=== PATIENT | female | born 1990 | race Caucasian/White ===

== ENCOUNTER 2024-02-21 13:56 | Outpatient (REF) | payer MEDICAID, SELFPAY ==
[2024-02-21 16:48] LABS: Abs Immature Grans 0.01 10^3/uL (0.0-0.06); Absolute Basophil Count 0.02 10^3/uL (0.0-0.2); Absolute Eosinophil Count 0.16 10^3/uL (0.0-0.7); Absolute Lymphocyte Count 2.73 10^3/uL (1.2-3.4); Absolute Monocyte Count 0.26 10^3/uL (0.1-0.8); Absolute Neutrophil Count 1.96 10^3/uL (1.2-6.7); Basophils % 0.4 %; Eosinophils % 3.1 %; HCT 40.1 % (36.0-46.0); HGB 13.7 g/dL (11.2-15.7); Immature Grans % 0.2 %; Lymphocytes % 53.1 %; MCH 30.9 pg (27.0-33.0); MCHC 34.2 % (32.0-36.0); MCV 90 fL (80-95); MPV 12.5 fL (8.0-11.0); Monocytes % 5.1 %; Neutrophils % 38.1 %; Platelet Count 183 10^3/uL (130-400); RBC 4.44 10^6/uL (3.93-5.22); RDW 12.6 % (11.7-14.6); RDW-SD 41.6 fL; WBC 5.14 10^3/uL (4.4-10.8)
[2024-02-21 17:20] LABS: Hemoglobin A1C 4.9 % (<5.7)
[2024-02-21 17:31] LABS: ALT 20 U/L (14-59); Albumin 4.2 g/dL (3.4-5.0); Alkaline Phosphatase 43 U/L (46-116); Anion Gap 9.3 mmol/L (3-11); BUN 6 mg/dL (7-18); Bilirubin, Total 0.38 mg/dL (0.2-1.0); CO2 28.7 mmol/L (21.0-32.0); CREATININE 0.9 mg/dL (0.55-1.02); Calcium 9.4 mg/dL (8.5-10.1); Calculated LDL 81 mg/dL (<100); Chloride 106 mmol/L (98-107); Cholesterol 161 mg/dL (<200); Estimated GFR 86.57 (mL/min/1.73m2); Glucose 89 mg/dL (74-106); HDL Cholesterol 71 mg/dL (40-60); Sodium 144 mmol/L (136-145); TSH (W/Ref FT4) 0.92 uIU/mL (0.36-3.74); Triglyceride 49 mg/dL (<150); Vitamin B12 914 pg/mL (193-986); Vitamin D 25 Total 30.8 ng/mL (30-100)
[2024-02-21 17:39] LABS: AST 15 U/L (15-37)
== END 2024-02-21 13:57 | disposition home or self-care (01) ==
LOC: LBN 13:56
PROVIDERS: PCP Nurse Practitioner Family; Visit Provider Nurse Practitioner Family
DX: E55.9 Vitamin D deficiency, unspecified (principal); D51.3 Other dietary vitamin B12 deficiency anemia; I10 Essential (primary) hypertension; E78.5 Hyperlipidemia, unspecified
CPT/HCPCS: 80053; 80061; 82306; 82607; 83036; 84443; 85025

== ENCOUNTER 2024-03-04 14:43 | Emergency (ER) | payer MEDICAID, SELFPAY ==
[2024-03-04] VITALS (40 sets, daily range): BP systolic 113–143; BP diastolic 67–89; PULSE 40–75; RESP 12–32; TEMP 36.1–36.3; O2SAT 84–100
--- NOTE | 2024-03-04 14:45 | RT.EKG_ITS ---
APPROVED REPORT Exam: Resting ECG Reason for Exam: dizziness Patient Location: E HR:47 bpm ECG Measurements Heart Rate 47 AXIS SC 153 P -18 QRSd 82 QRS 59 QT 504 T 55 QTc 447 Conclusion Sinus bradycardia...rate< 60 Supraventricular bigeminy...bigeminy string>4 w/ SV complexes
[2024-03-04 15:20] LABS: Abs Immature Grans 0.04 10^3/uL (0.0-0.06); Absolute Basophil Count 0.03 10^3/uL (0.0-0.2); Absolute Eosinophil Count 0.01 10^3/uL (0.0-0.7); Absolute Lymphocyte Count 0.87 10^3/uL (1.2-3.4); Absolute Monocyte Count 0.25 10^3/uL (0.1-0.8); Basophils % 0.4 %; Eosinophils % 0.1 %; HGB 13.4 g/dL (11.2-15.7); Immature Grans % 0.5 %; MCH 30.9 pg (27.0-33.0); MCHC 34.4 % (32.0-36.0); MCV 90 fL (80-95); MPV 11.4 fL (8.0-11.0); Monocytes % 3.2 %; Neutrophils % 84.8 %; Platelet Count 164 10^3/uL (130-400); RBC 4.34 10^6/uL (3.93-5.22); RDW 12.4 % (11.7-14.6); RDW-SD 40.9 fL
[2024-03-04] MEDS: Lactated Ringers 1,000 ML 1000 ML IV (15:30)
[2024-03-04 15:36] LABS: Source Nasal/Nares
[2024-03-04 15:42] LABS: ALT 23 U/L (14-59); AST 18 U/L (15-37); Albumin 3.8 g/dL (3.4-5.0); Alkaline Phosphatase 40 U/L (46-116); Anion Gap 12.7 mmol/L (3-11); BUN 10 mg/dL (7-18); Bilirubin, Total 0.91 mg/dL (0.2-1.0); CO2 19.3 mmol/L (21.0-32.0); CREATININE 0.9 mg/dL (0.55-1.02); Chloride 108 mmol/L (98-107); Estimated GFR 86.57 (mL/min/1.73m2); Glucose 150 mg/dL (74-106); Magnesium 1.6 mg/dL (1.8-2.4); Potassium 3.3 mmol/L (3.5-5.1); Sodium 140 mmol/L (136-145); Troponin I < 50 ng/L (< or =60)
--- NOTE | 2024-03-04 15:46 | ED.GENADUL_ITS ---
Discharge Plan Discharge Details Chief Complaint: Dizzy/Sync Primary Care Provider: Noris Enciso ED Provider: Job Smith Home Meds and New Rx's Prescriptions: No Action citalopram [Celexa] 40 mg tablet 40 mg PO DAILY bupropion HCl [Wellbutrin XL] 300 mg tablet extended release 24 hr 300 mg PO QAM lisdexamfetamine [Vyvanse] 30 mg capsule 30 mg PO QAM olanzapine 5 mg tablet 5 mg PO TID PRN lamotrigine 25 mg tablet 75 mg PO DAILY hydroxyzine HCl 25 mg tablet 25 mg PO TID PRN lorazepam 2 MG tablet 2 mg PO PRN PRN Xarelto 20 MG tablet 20 mg PO DAILY HPI General Mode of arrival: EMS . Date/Time Provider Initiated Documentation: 03/04/24 14:45 . Limitations to Documentation: no limitations . Information obtained by: patient . HPI Narrative: 33-year-old female with history of bipolar disorder 2, ADHD, PTSD, fibromyalgia, here with chief complaint of vomiting. Patient notes cough over the past 3 to 4 days. She developed nausea last night that persisted with vomiting today. She has associated dizziness. Nausea vomiting is severe. No associated headache. No fevers. No abdominal pain but does have discomfort associated with the vomiting. Patient received Ativan and Zofran by EMS prior to arrival. Patient notes that she has been depressed recently. No suicidal thoughts or attempts. No self-harm. Related Data Home Medications ?Medication ?Instructions ?Recorded ?Confirmed lorazepam 2 mg tablet 2 mg PO PRN PRN 06/01/17 03/04/24 rivaroxaban 20 mg tablet (Xarelto) 20 mg PO DAILY 06/01/17 03/04/24 bupropion HCl 300 mg 24 hr tablet, 300 mg PO QAM 02/27/24 03/04/24 extended release (Wellbutrin XL) citalopram 40 mg tablet (Celexa) 40 mg PO DAILY 02/27/24 03/04/24 hydroxyzine HCl 25 mg tablet 25 mg PO TID PRN 02/27/24 03/04/24 lamotrigine 25 mg tablet 75 mg PO DAILY 02/27/24 03/04/24 lisdexamfetamine 30 mg capsule 30 mg PO QAM 02/27/24 03/04/24 (Vyvanse) olanzapine 5 mg tablet 5 mg PO TID PRN 02/27/24 03/04/24 Allergies Allergy/AdvReac Type Severity Reaction Status Date / Time cephalexin monohydrate (From Allergy Severe Anaphylaxsi Unverified 03/04/24 14:49 Keflex) s amoxicillin Allergy Anaphylaxsi Unverified 03/04/24 14:49 s Penicillins Allergy Anaphylaxsi Unverified 03/04/24 14:49 s ibuprofen (From Motrin) AdvReac Intermediate stomach Unverified 03/04/24 14:49 upset diazepam (From Valium) AdvReac Unknown EMOTIONAL Unverified 03/04/24 14:49 /BRINGS UP BAD MEMORIES General Stated Complaint: Dizzy/Sync TED: 3 Review of Systems All systems reviewed & are unremarkable except as noted in HPI and below Constitutional Constitutional: Denies fever(s) Gastrointestinal Gastrointestinal: Reports as per HPI Exam Const General: cooperative HENMT Mouth: mucous membranes dry Eyes Conjunctivae: normal conjunctivae Sclera: normal sclerae Resp Auscultation: clear to auscultation bilaterally, no rales, no rhonchi and no wheezes Cardio Rate: regular rate and not tachycardic Rhythm: regular rhythm GI Palpation: soft, not firm, no guarding, no masses, not rigid and nontender Skin General skin exam: no rashes or lesions noted Other: Poor turgor Neuro General: patient alert, patient awake, patient oriented x3 and tone normal Extrem General: no edema Psych Appearance: grossly normal Mental Status: mental status grossly normal Course Vital Signs Vital signs: Vital Signs Pulse 50 L 03/04/24 14:45 Respiratory Rate 16 03/04/24 14:45 Blood Pressure 143/89 H 03/04/24 14:45 Pulse Oximetry 100 03/04/24 14:45 Pulse 50 L 03/04/24 14:45 Respiratory Rate 16 03/04/24 14:45 Respiratory Effort Normal, Non-Labored 03/04/24 15:06 Respiratory Depth Normal 03/04/24 15:06 Respiratory Pattern Normal 03/04/24 15:06 Blood Pressure 143/89 H 03/04/24 14:45 Blood Pressure Position Supine 03/04/24 14:45 Pulse Oximetry 100 03/04/24 14:45 Oxygen Delivery Method Room Air 03/04/24 14:45 Oxygen Flow Rate 0 03/04/24 14:45 Lab/Test Results Lab/Test Results: Laboratory Tests Range/Units 03/04/24 03/04/24 14:55 15:33 WBC (4.4-10.8) 10^3/uL 7.90 RBC (3.93-5.22) 10^6/uL 4.34 Hgb (11.2-15.7) g/dL 13.4 Hct (36.0-46.0) % 39.0 MCV (80-95) fL 90 MCH (27.0-33.0) pg 30.9 MCHC (32.0-36.0) % 34.4 RDW (11.7-14.6) % 12.4 Plt Count (130-400) 10^3/uL 164 MPV (8.0-11.0) fL 11.4 H Immature Gran % % 0.5 Neutrophils % % 84.8 Lymphocytes % % 11.0 Monocytes % % 3.2 Eosinophils % % 0.1 Basophils % % 0.4 Nucleated RBC % (0.0-0.3) % 0.0 Absolute Neutrophils (1.2-6.7) 10^3/uL 6.70 Absolute Lymphocytes (1.2-3.4) 10^3/uL 0.87 L Absolute Monocytes (0.1-0.8) 10^3/uL 0.25 Absolute Eosinophils (0.0-0.7) 10^3/uL 0.01 Absolute Basophils (0.0-0.2) 10^3/uL 0.03 Sodium (136-145) mmol/L 140 Potassium (3.5-5.1) mmol/L 3.3 L Chloride (98-107) mmol/L 108 H Carbon Dioxide (21.0-32.0) mmol/L 19.3 L Anion Gap (3-11) mmol/L 12.7 H BUN (7-18) mg/dL 10 Creatinine (0.55-1.02) mg/dL 0.9 Est GFR (CKD-EPI 2020) (mL/min/1.73m2) 86.57 Glucose (74-106) mg/dL 150 H Calcium (8.5-10.1) mg/dL 9.0 Magnesium (1.8-2.4) mg/dL 1.6 L Total Bilirubin (0.2-1.0) mg/dL 0.91 AST (15-37) U/L 18 ALT (14-59) U/L 23 Alkaline Phosphatase (46-116) U/L 40 L Troponin I (< or =60) ng/L < 50 Total Protein (6.4-8.2) g/dL 7.0 Albumin (3.4-5.0) g/dL 3.8 COVID-19 Source Nasal/Nares Medical Decision Making 1610 -- 33-year-old female with history of bipolar 2, here with nausea and vomiting today with associated dizziness, recent cough over the past 3 days. Patient is bradycardic, intermittently dry heaving, normotensive. Patient is saturating well in no respiratory distress but does have intermittent cough. Patient received Considered pneumonia and viral illness including COVID. Plan to check COVID testing and will obtain chest x-ray. Patient dehydrated on arrival. Patient was given 1 L crystalloid bolus. Plan to continue D5 NS at 200mL an hour. On reassessment patient continued to have nausea. I will give Compazine 10 mg IV. Labs reviewed and mild hypomagnesemia noted. Mild hypokalemia noted. Will give magnesium 1 g IV and potassium 20 mill equivalents by mouth. Tick panel was sent and pending. 1707 --patient reassessed and feeling better, requesting ice chips. Continues to have bradycardia in the 40s to 50s. COVID test negative. Will obtain chest x-ray to assess for PNA. Patient has not had prior brain imaging. She has had intermittent posterior HAs. Will obtain CT head to assess for mass. Lab Data Lab results reviewed: Yes I reviewed the patient's lab results. Labs: Laboratory Tests Range/Units 03/04/24 03/04/24 14:55 15:33 WBC (4.4-10.8) 10^3/uL 7.90 RBC (3.93-5.22) 10^6/uL 4.34 Hgb (11.2-15.7) g/dL 13.4 Hct (36.0-46.0) % 39.0 MCV (80-95) fL 90 MCH (27.0-33.0) pg 30.9 MCHC (32.0-36.0) % 34.4 RDW (11.7-14.6) % 12.4 Plt Count (130-400) 10^3/uL 164 MPV (8.0-11.0) fL 11.4 H Immature Gran % % 0.5 Neutrophils % % 84.8 Lymphocytes % % 11.0 Monocytes % % 3.2 Eosinophils % % 0.1 Basophils % % 0.4 Nucleated RBC % (0.0-0.3) % 0.0 Absolute Neutrophils (1.2-6.7) 10^3/uL 6.70 Absolute Lymphocytes (1.2-3.4) 10^3/uL 0.87 L Absolute Monocytes (0.1-0.8) 10^3/uL 0.25 Absolute Eosinophils (0.0-0.7) 10^3/uL 0.01 Absolute Basophils (0.0-0.2) 10^3/uL 0.03 Sodium (136-145) mmol/L 140 Potassium (3.5-5.1) mmol/L 3.3 L Chloride (98-107) mmol/L 108 H Carbon Dioxide (21.0-32.0) mmol/L 19.3 L Anion Gap (3-11) mmol/L 12.7 H BUN (7-18) mg/dL 10 Creatinine (0.55-1.02) mg/dL 0.9 Est GFR (CKD-EPI 2020) (mL/min/1.73m2) 86.57 Glucose (74-106) mg/dL 150 H Calcium (8.5-10.1) mg/dL 9.0 Magnesium (1.8-2.4) mg/dL 1.6 L Total Bilirubin (0.2-1.0) mg/dL 0.91 AST (15-37) U/L 18 ALT (14-59) U/L 23 Alkaline Phosphatase (46-116) U/L 40 L Troponin I (< or =60) ng/L < 50 Total Protein (6.4-8.2) g/dL 7.0 Albumin (3.4-5.0) g/dL 3.8 TSH (0.36-3.74) uIU/mL 1.23 COVID-19 Source Nasal/Nares Quality:SDOH Health Related Social Needs: No Data to Display PFSH All Active Problems ADHD (Acute) Obesity (Chronic) Bipolar 2 disorder (Acute) PTSD (post-traumatic stress disorder) (Acute) Cervical radiculopathy (Acute) Binge eating disorder (Acute) Bloating (Acute) Change in bowel function (Acute) Outcome of delivery, single liveborn (Acute 06/02/14) Labor, precipitous, delivered (Acute 06/02/14) Irritable bowel syndrome (Chronic) Symptomatic varicose veins of both lower extremities (Chronic) Depression (Chronic) (Acute 06/02/14) Medical History PCOS/ possible Dx Dx by her PCP mid 03/2013 secondary to hirsuitism [ face hair only ] Rx Metformin Asthma Family History Other Adenocarcinoma of lung Heart disease Mental disorder Personal history of malignant neoplasm Social History Smoking/Tobacco Use Status: Former Tobacco Use Smoking risk assessment performed?: Yes Drug use: Never Do you feel safe in your relationship?: Yes
[2024-03-04 15:48] LABS: TSH (W/Ref FT4) 1.23 uIU/mL (0.36-3.74)
[2024-03-04 16:10] LABS: COVID-19 PCR Negative (Negative)
[2024-03-04] MEDS: Prochlorperazine 10 MG/2 ML VIAL IVP (16:15)
[2024-03-04] MEDS: MAGNESIUM SULFATE 1 GM/100 ML BAG IVINF (16:16)
[2024-03-04 16:32] LABS: Lipase 46 U/L (16-77)
[2024-03-04] MEDS: Potassium Chloride 20 MEQ TABCR PO (17:15)
--- NOTE | 2024-03-04 17:24 | W.EDPROG ---
Date of service: 03/04/24 Time of Service: 17:25 Medical Decision Making I received signout on this 33-year-old patient with dizziness found to be bradycardic. Patient is pending a chest x-ray and a CT head. If her heart rate improves she will be appropriate for discharge. Otherwise we will consider hospitalization. 8:12 PM Patient's chest x-ray and CT head were read as reassuring. She ambulated and tolerated p.o. in the emergency department. She felt improved and wanted to go home to rest. I inquired as to whether or not she might be withdrawing from any substances. She said that she smokes marijuana but denies any opiates and ethanol. I advised ED return for any fevers syncope nausea or vomiting. I provided her with a work note. She understood her return indications and was discharged with empiric trial of expectant outpatient management. Quality:[facility] Health Related Social Needs: No Data to Display Sign Out Sign Out Data: Sign Out Comment: Patient has received zofran, ativan, compazine and IVF. Nausea improved. Patient has cough and remains bradycardic. Plan to followup cxr and CT brain. Reassess patient for disposition. Last updated by Job Smith MD at 03/04/24 17:14 Discharge Plan Disposition Patient Disposition: Home Discharge Details Clinical Impression: Dizziness Primary Care Provider: Noris Enciso ED Provider: Roddy Melendez Home Meds and New Rx's Prescriptions: Continued citalopram [Celexa] 40 mg tablet 40 mg PO DAILY bupropion HCl [Wellbutrin XL] 300 mg tablet extended release 24 hr 300 mg PO QAM lisdexamfetamine [Vyvanse] 30 mg capsule 30 mg PO QAM olanzapine 5 mg tablet 5 mg PO TID PRN lamotrigine 25 mg tablet 75 mg PO DAILY hydroxyzine HCl 25 mg tablet 25 mg PO TID PRN lorazepam 2 MG tablet 2 mg PO PRN PRN Xarelto 20 MG tablet 20 mg PO DAILY Discharge Instructions Additional Instructions: You are seen in the emergency department for your dizziness. As we discussed if you pass out develop fevers chills nausea or vomiting please return to the emergency department. You are receiving a work note for several days off of work. Stand Alone Forms: Work Release Discharge Data Discharge Date/Time-TO BE ENTERED AT DEPARTURE: 03/04/24 20:42
[2024-03-04] MEDS: DEXTROSE 5%-0.45% SALINE 1,000 ML 200 ML IV (18:15)
--- NOTE | 2024-03-04 18:15 | DI.RAD_ITS ---
Exam(s) XR CHEST 1V IN DI DEPT EXAM: XR CHEST 1V IN DI DEPT CLINICAL HISTORY: Dizziness. TECHNIQUE: 2D digital imaging was performed. COMPARISON: No exams were available for comparison FINDINGS: Single AP portable view. Heart size is upper normal. The mediastinum is not widened. Lungs are clear. No infiltrates nor obvious pleural effusions. IMPRESSION: No acute pulmonary findings on this single AP portable view of the chest. DATA REPOSITORY: RADIATION DOSE DELIVERED:
--- NOTE | 2024-03-04 18:15 | DI.CT_ITS ---
Exam(s) CT HEAD WO EXAM: CT HEAD WO CLINICAL HISTORY: Dizziness. TECHNIQUE: Imaging Protocol: Axial computed tomography images with coronal and sagittal reformatted images were created and reviewed COMPARISON: No exams were available for comparison FINDINGS: There are no skull fractures. There is no fluid in the visualized paranasal sinuses. There is no evidence of intracranial hemorrhage, mass effect, or shift of midline structures. There are no extra-axial fluid collections. The ventricles are not enlarged or shifted and there is no blo od within the ventricular system nor within the basal cisterns. IMPRESSION: No acute intracranial findings on this noninfused CT scan of the brain. Called by myself to ER physician 03/04/2024 7:18 p.m. RADIATION DOSE DELIVERED: Total DLP DATA REPOSITORY: All CT scans at this facility are submitted to the National Radiology Data Registry (NRDR) Dose Index Registry (DIR) with the [employer] (A[employer]). RADIATION OPTIMIZATION: All CT scans at this facility use at least one of these dose optimization te chniques: automated exposure control; mA and/or kV adjustment per patient size (includes targeted exa ms where dose is matched to clinical indication); or iterative reconstruction.
[2024-03-04 18:42] LABS: HCG Qual (Serum) Negative
--- NOTE | 2024-03-04 18:55 | NUR.NOTE ---
patient refused to have blood pressure done multiple times during the visit. pt was educated each time bp was refused. pt was irritible, restless, nausea, hot and cold with sweat.
[2024-03-04] MEDS: Ondansetron O.D.T. 4 MG TABEF, 3 TABS/BTL PO (20:41)
[2024-03-05 10:27] LABS: Lyme Ab w Rflx to Lyme Confirm Negative (Negative)
[2024-03-08 22:18] LABS: Anaplasma phagocytophilum Negative (Negative); B. miyamotoi PCR Negative (Negative); Babesia divergens/MO-1 Negative (Negative); Babesia duncani Negative (Negative); Babesia microti Negative (Negative); Ehrlichia chaffeensis Negative (Negative); Ehrlichia ewingii/canis Negative (Negative); Ehrlichia muris eauclairensis Negative (Negative)
== END 2024-03-04 20:42 | disposition home or self-care (01) ==
PROVIDERS: Student in an Organized Health Care Education/Training Program; Emergency Provider Emergency Medicine; PCP Nurse Practitioner Family
DX: R11.2 Nausea with vomiting, unspecified (principal); R42 Dizziness and giddiness
CPT/HCPCS: 00123; 36415; 80053; 83690; 87635; 87637; 87798; 93005; 96361; 96365; 96375; 99284; 70450; 71045; 83735; 84443; 84484; 84703; 85025; 86618; 93010; 99283; J0780; J3475

== ENCOUNTER 2024-03-21 08:16 | Emergency (ER) | payer MEDICAID, SELFPAY ==
[2024-03-21] VITALS (7 sets, daily range): BP systolic 116–135; BP diastolic 66–94; PULSE 51–72; RESP 16–18; TEMP 36.8; O2SAT 98–100
--- NOTE | 2024-03-21 08:30 | DI.RAD_ITS ---
Exam(s) XR TIB/FIB LT EXAM: XR TIB/FIB LT CLINICAL HISTORY: pain. TECHNIQUE: 2D digital imaging was performed. Two views. COMPARISON: No exams were available for comparison FINDINGS: BONES: No acute fracture is present. No bony destructive lesion is seen. Visualized portion of knee a nd ankle joints are unremarkable. SOFT TISSUE: Normal. IMPRESSION: Unremarkable radiographs of the left tibia and fibula. DATA REPOSITORY: RADIATION DOSE DELIVERED:
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
[2024-03-21 08:57] LABS: Abs Immature Grans 0.01 10^3/uL (0.0-0.06); Absolute Basophil Count 0.05 10^3/uL (0.0-0.2); Absolute Eosinophil Count 0.14 10^3/uL (0.0-0.7); Absolute Lymphocyte Count 1.74 10^3/uL (1.2-3.4); Absolute Monocyte Count 0.23 10^3/uL (0.1-0.8); Absolute Neutrophil Count 2.54 10^3/uL (1.2-6.7); Basophils % 1.1 %; HCT 38.4 % (36.0-46.0); Immature Grans % 0.2 %; Lymphocytes % 36.9 %; MCH 31.3 pg (27.0-33.0); MCHC 33.9 % (32.0-36.0); MCV 93 fL (80-95); MPV 11.1 fL (8.0-11.0); Monocytes % 4.9 %; Neutrophils % 53.9 %; Platelet Count 176 10^3/uL (130-400); RBC 4.15 10^6/uL (3.93-5.22); RDW 13.2 % (11.7-14.6); WBC 4.71 10^3/uL (4.4-10.8)
[2024-03-21] MEDS: LORazepam 2 MG/ML VIAL 1 MG IVP (08:59)
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
[2024-03-21] MEDS: Omnipaque 350 MG/ML 100 ML BTL IJ (09:10)
[2024-03-21] MEDS: Normal Saline - Diluent 50 ML VIAL IJ (09:13)
[2024-03-21 09:16] LABS: ALT 18 U/L (14-59); AST 5 U/L (15-37); Albumin 3.7 g/dL (3.4-5.0); Alkaline Phosphatase 39 U/L (46-116); Anion Gap 6.6 mmol/L (3-11); BUN 8 mg/dL (7-18); Bilirubin, Total 0.29 mg/dL (0.2-1.0); CO2 27.4 mmol/L (21.0-32.0); CREATININE 0.8 mg/dL (0.55-1.02); Calcium 9.2 mg/dL (8.5-10.1); Chloride 106 mmol/L (98-107); Estimated GFR 99.71 (mL/min/1.73m2); Glucose 97 mg/dL (74-106); Magnesium 2.1 mg/dL (1.8-2.4); Potassium 3.7 mmol/L (3.5-5.1); Sodium 140 mmol/L (136-145)
[2024-03-21 09:17] LABS: Troponin I < 50 ng/L (< or =60)
[2024-03-21] MEDS: ACETAMINOPHEN 1,000 MG/100 ML BTL 400 MG IVPB (09:39)
== END 2024-03-21 10:49 | disposition home or self-care (01) ==
PROVIDERS: Emergency Provider Student in an Organized Health Care Education/Training Program; PCP Nurse Practitioner Family
DX: M54.2 Cervicalgia (principal); M54.50 Low back pain, unspecified; M25.512 Pain in left shoulder; S80.12XA Contusion of left lower leg, initial encounter; V89.2XXA Person injured in unspecified motor-vehicle accident, traffic, initial encounter; M62.830 Muscle spasm of back; R51.9 Headache, unspecified; R10.9 Unspecified abdominal pain; F41.9 Anxiety disorder, unspecified
CPT/HCPCS: 74177; 80053; 96374; 96375; 99285; 70450; 71260; 72125; 73590; 83735; 84484; 85025; 99284; J0131; J2060; J3490

== ENCOUNTER 2024-05-16 01:39 | Outpatient (CLI) | payer MEDICAID, SELFPAY ==
--- NOTE | 2024-05-16 | DI.MAMMO_ITS ---
Exam(s) US BREAST LT COMPLETE US BREAST RT COMPLETE MG MAMMO DIAGNOSTIC BI EXAM: MG MAMMO DIAGNOSTIC BI AND BILATERAL COMPLETE BREAST ULTRASOUND CLINICAL HISTORY: BILAT BREAST PAIN, PALPABLE MASS. TECHNIQUE: BILATERAL CC AND MLO mammographic images were obtained with 3D tomosynthesis technique an d utilizing computer aided detection (CAD). BILATERAL COMPLETE BREAST ULTRASOUND was performed, including all 4 quadrants of both breasts as well as both axillary regions. COMPARISON: None. This is baseline breast imaging on this 33-year-old patient who has bilateral denton ast tenderness, most prominent lateral left breast and 2 has had intermittent nonbloody milky nipple discharge. She has not breastfed in 10 years FINDINGS: DIAGNOSTIC BILATERAL MAMMOGRAM: The fibroglandular tissue pattern both breast is moderately dense, this somewhat decreasing the sensi tivity of the mammogram for finding hidden underlying lesions. There are no obvious spiculated masses nor malignant-appearing microcalcification groups in either br east. There is no significant architectural distortion or skin thickening-retraction. BILATERAL COMPLETE BREAST ULTRASOUND: Left breast ultrasound: This is the side of most pain. At the 2 o'clock position there is a 5 x 4 mm hemorrhagic microcyst. Also at 2 o'clock position are 2 other wider than taller hemorrhagic appearing microcysts, both measuring 5 mm. This is the area of her pain. There is also a smaller 3 millimeter microcyst in this region. At the 3 o'clock position there is a 4 x 3 mm microcyst and a 5 mm microcyst. At the 4 o'clock position there is an 8 x 2 mm microcyst. There are no other focal findings laterally. At the 10 o'clock position there is a 3 mm microcyst. Also a 5 mm microcyst. Scanning of the left axilla is negative for significant adenopathy. Right breast ultrasound: At the 2 o'clock position there is a 4 x 3 mm microcyst and a 5 x 3 mm microcyst. Also a 3 x 2 mm mi crocyst. At the 4 o'clock position there is a 4 x 3 mm microcyst. At the 8 o'clock position there is a 2 x 2 mm microcyst and a 3 x 2 mm microcyst. At the 10 o'clock position there is a 3 x 2 mm microcyst At the 11 o'clock position there is a 3 x 3 mm microcyst. Also a 7 x 3 mm microcyst. At the peripheral 11 o'clock position there is a benign-appearing 9 x 5 mm intramammary lymph node. Scanning of the right axilla is negative for significant adenopathy. IMPRESSION: 1. Dense bilateral fibroglandular tissue on mammography. No mammographic evidence of malignancy. 2. Bilateral breast ultrasound examination reveals numerous microcysts which are not seen on the mamm ogram, as individual described above. In the lateral aspect of her left breast (which is her area of most tenderness) there are a few nodular densities which have the appearance of hemorrhagic microcys ts between the 2 and 4 o'clock positions. Most of the other microcysts in the breasts appear simple Appropriate follow-up is repeat bilateral breast ULTRASOUND in 6 months.. The patient was informed of the findings and follow-up recommendations by myself prior to leaving the department today. BI-RADS Category 3 - 6 month - Probably Benign Finding: Recommend follow-up mammography in 6 months Breast Density - Category C - Heterogeneously dense Breast density Category C or D implies that the patient has dense breast tissue. Dense breast tissue can make it harder to find cancer on a mammogram. Dense breast tissue is also associated with an incr eased risk of breast cancer. This information about the result of the mammogram report was provided to the patient to raise their awareness. Use this report when you speak with the patient about their risks for breast cancer, which includes their family history. At that time, you may recommend additional screening tests (Ultrasoun d or MRI) as these tests may add significant information. A negative radiographic report should not delay biopsy if a dominant or clinically suspicious mass is present. Up to ten percent of cancers are not identified on mammography. A negative report may reinforce clinical impression. Adenosis and dense breasts may obscure an underlying neoplasm. False positive reports average 6 to 10%. Patient will receive a letter notifying them of these results.
== END 2024-05-16 01:59 ==
LOC: DI 01:40
PROVIDERS: PCP Nurse Practitioner Family; Visit Provider Nurse Practitioner Family
DX: Z12.31 Encounter for screening mammogram for malignant neoplasm of breast (principal); R92.8 Other abnormal and inconclusive findings on diagnostic imaging of breast
CPT/HCPCS: 76642; 77062; 77066; G0279

== ENCOUNTER 2024-05-23 01:46 | Outpatient (CLI) | payer MEDICAID, SELFPAY ==
--- NOTE | 2024-05-23 | DI.CT_ITS ---
Exam(s) CT ABDOMEN PELVIS W EXAM: CT ABDOMEN PELVIS W CLINICAL HISTORY: ABD AND PELVIC PAIN, ? BLOCKAGE. TECHNIQUE: Imaging Protocol: Axial computed tomography images with coronal and sagittal reformatted images were created and reviewed CONTRAST MATERIAL: Intravenous: Omnipaque 350 Contrast volume:85 ml Oral: yes / CT CT CHEST/ABD/PEL W from 03/21/2024 FINDINGS: ABDOMEN and PELVIS: Lung Bases: No acute findings. Liver: Normal density. No suspicious mass. Gallbladder and biliary tract: Status post cholecystectomy. No biliary dilation. Pancreas: Normal density. No abnormal calcifications or inflammatory process. No evidence of mass. Spleen: Normal. Kidneys: Normal size, contour and axis. No radiodense stones. No obstructive uropathy. No suspicious masses seen. Adrenal glands: No masses seen. Vasculature: Abdominal aorta non-dilated. Soft tissues: Unremarkable. Bladder: No gross wall thickening. No calculi.No focal mass. Bowel: No obstruction. No bowel wall thickening. Appendix normal.Large quantity of stool seen from cecum through descending colon. Rectosigmoid is nearly free of stool. Redundant sigmoid. Peritoneal cavity: No ascites. No focal collection. No mesenteric inflammatory response. Bones: Unremarkable for age. Reproductive organs: Status post hysterectomy. Lymph nodes: No pathologically enlarged lymph nodes. IMPRESSION:: No acute abnormality in the abdomen or pelvis. Large quantity of stool consistent with constipation . RADIATION DOSE DELIVERED: Total DLP DATA REPOSITORY: All CT scans at this facility are submitted to the National Radiology Data Registry (NRDR) Dose Index Registry (DIR) with the [employer] ([employer]). RADIATION OPTIMIZATION: All CT scans at this facility use at least one of these dose optimization te chniques: automated exposure control; mA and/or kV adjustment per patient size (includes targeted exa ms where dose is matched to clinical indication); or iterative reconstruction.
[2024-05-23] MEDS: Barium Sulfate 2% W/V-Berry Smoothie 450 ML BTL PO (07:43)
[2024-05-23] MEDS: Barium Sulfate 2% W/V-Creamy Vanilla Smoothie 450 ML BTL PO (07:43)
[2024-05-23] MEDS: Normal Saline - Diluent 50 ML VIAL IJ (09:21)
[2024-05-23] MEDS: Omnipaque 350 MG/ML 500 ML BTL-Imaging package 85 ML IJ (09:24)
== END 2024-05-23 02:06 ==
PROVIDERS: PCP Nurse Practitioner Family; Visit Provider Nurse Practitioner Family
DX: K59.00 Constipation, unspecified (principal); R10.30 Lower abdominal pain, unspecified
CPT/HCPCS: 74177

== ENCOUNTER 2025-07-08 20:09 | Emergency (ER) | payer MEDICAID, SELFPAY ==
[2025-07-08 20:11] VITALS: BP 108/66; PULSE 110; RESP 20; TEMP 37.7; O2SAT 98
--- NOTE | 2025-07-08 20:15 | DI.RAD_ITS ---
Exam(s) XR KNEE RT 4V AP,LAT,SHASHI,PAT EXAM: XR KNEE RT 4V AP,LAT,SHASHI,PAT CLINICAL HISTORY: knee injury, bruising. TECHNIQUE: 2D digital imaging was performed. Three views. COMPARISON: CR LEFT KNEE 3 VIEW COMPLETE from 12/17/2012 FINDINGS: BONES: No acute fracture is present. No bony destructive lesion is seen. JOINTS: The knee is normally aligned. No joint effusion is seen. SOFT TISSUE: Normal. IMPRESSION: Unremarkable radiographs of the right knee. The preliminary [facility] report was reviewed. DATA REPOSITORY: RADIATION DOSE DELIVERED:
[2025-07-08] MEDS: Acetaminophen 500 MG TAB 1000 MG PO (21:13)
[2025-07-08] MEDS: traMADol 50 MG TAB PO (21:13)
--- NOTE | 2025-07-08 21:20 | DI.[facility]_ITS ---
PROCEDURE INFORMATION: Exam: XR Right Knee Exam date and time: 07/08/2025 8:40 PM Age: 34 years old Clinical indication: Right; R knee pain, bruising TECHNIQUE: Imaging protocol: Radiologic exam of the right knee. Views: 4 or more views. COMPARISON: No relevant prior studies available. FINDINGS: Bones/joints: Normal. Soft tissues: Normal. IMPRESSION: No acute findings. Dictated and Authenticated by: Dc Reynoso MD. Orderin Aaron Dowell MD
--- NOTE | 2025-07-08 21:22 | W.ED.GENAD ---
Discharge Plan Disposition Patient Disposition: Home Condition: Stable Discharge Details Clinical Impression: Contusion of right knee Primary Care Provider: Noris Enciso ED Provider: Delmer Walker Home Meds and New Rx's Prescriptions: Continued citalopram [Celexa] 40 mg tablet 40 mg PO DAILY bupropion HCl [Wellbutrin XL] 300 mg tablet extended release 24 hr 300 mg PO QAM lisdexamfetamine [Vyvanse] 30 mg capsule 30 mg PO QAM olanzapine 5 mg tablet 5 mg PO TID PRN lamotrigine 25 mg tablet 400 mg PO DAILY hydroxyzine HCl 25 mg tablet 25 mg PO TID PRN Caplyta 42 mg capsule 42 mg PO DAILY duloxetine 30 mg capsule,delayed release(DR/EC) 30 mg PO DAILY gabapentin 400 mg capsule 400 mg PO TID naltrexone 50 mg tablet 50 mg PO DAILY paroxetine HCl 20 mg tablet 20 mg PO DAILY phentermine 15 mg capsule 15 mg PO DAILY Rx Instructions: must administer 2 hours after breakfast lorazepam 2 MG tablet 2 mg PO PRN PRN Xarelto 20 MG tablet 20 mg PO DAILY bupropion HCl 450 mg tablet extended release 24 hr 450 mg PO DAILY Discharge Instructions Instructions: Minor Contusion ED Additional Instructions: You were seen in the emergency department for the contusion of your left knee, there is no evidence of hematoma expansion over the last 4 days, there is no fracture on your x-ray, your anticoagulated and there is very low risk for a blood clot. You have a higher propensity to bruise and have significantly larger bruises due to your blood thinner use, please apply gentle compression wrap to the area, take Tylenol and your newly prescribed tramadol for pain, you can also apply gentle heat to the area and gentle massage to help resorb the contusion. Stand Alone Forms: Portal Information Referrals: Noris Enciso [Primary Care Provider, Medicine] Discharge Data Discharge Date/Time-TO BE ENTERED AT DEPARTURE: 07/08/25 21:40 HPI General Date/Time Provider Initiated Documentation: 07/08/25 20:21. HPI Narrative: 34 year-old female presents to ED today by POV/ambulating with a chief complaint of fall while running up her stairs 4 days ago, with bruise to R knee area. Quality described as bruise that's changing colors, no radiation to expanding hematoma, inability to bear weight, endorses pain on knee joint line. Severity is described as moderate. Palliating factors include ice & elevation with relief. Provoking factors include nothing specific. Events leading up to the incident/Associated Symptoms: Patient is concerned that she's bleeding internally. Patient is anticoagulated due to clotting disorder. Related Data Home Medications ?Medication ?Instructions ?Recorded ?Confirmed lorazepam 2 mg tablet 2 mg PO PRN PRN 06/01/17 07/08/25 rivaroxaban 20 mg tablet (Xarelto) 20 mg PO DAILY 06/01/17 07/08/25 bupropion HCl 300 mg 24 hr tablet, 300 mg PO QAM 02/27/24 07/08/25 extended release (Wellbutrin XL) citalopram 40 mg tablet (Celexa) 40 mg PO DAILY 02/27/24 07/08/25 hydroxyzine HCl 25 mg tablet 25 mg PO TID PRN 02/27/24 07/08/25 lamotrigine 25 mg tablet 400 mg PO DAILY 02/27/24 07/08/25 lisdexamfetamine 30 mg capsule 30 mg PO QAM 02/27/24 07/08/25 (Vyvanse) olanzapine 5 mg tablet 5 mg PO TID PRN 02/27/24 07/08/25 duloxetine 30 mg capsule,delayed 30 mg PO DAILY 08/01/24 07/08/25 release gabapentin 400 mg capsule 400 mg PO TID 08/01/24 07/08/25 lumateperone 42 mg capsule 42 mg PO DAILY 08/01/24 07/08/25 (Caplyta) naltrexone 50 mg tablet 50 mg PO DAILY 08/01/24 07/08/25 paroxetine HCl 20 mg tablet 20 mg PO DAILY 08/01/24 07/08/25 phentermine 15 mg capsule 15 mg PO DAILY 08/01/24 07/08/25 bupropion HCl 450 mg 24 hr tablet, 450 mg PO DAILY 07/08/25 07/08/25 extended release Allergies Allergy/AdvReac Type Severity Reaction Status Date / Time cephalexin monohydrate (From Allergy Severe Anaphylaxsi Unverified 07/08/25 20:22 Keflex) s amoxicillin Allergy Anaphylaxsi Unverified 07/08/25 20:22 s Penicillins Allergy Anaphylaxsi Unverified 07/08/25 20:22 s ibuprofen (From Motrin) AdvReac Intermediate stomach Unverified 07/08/25 20:22 upset General Stated Complaint: Orthopedic TED: 4 Review of Systems All systems reviewed & are unremarkable except as noted in HPI and below Exam Narrative Exam Narrative: GENERAL APPEARANCE: Well-nourished, non-toxic, awake and alert, atraumatic, no acute distress. SKIN: Warm, pink, dry, intact, without rashes/lesions/ulcerations. HEAD: Normocephalic, atraumatic, normal hair distribution for gender/age. EYES: Normal conjunctiva, no exudates on lids/lashes. ENT: Nares patent, no circumoral cyanosis, no facial swelling NECK: Supple, trachea midline, painless cervical ROM. LUNGS/CHEST: Non-labored respirations, normal A/P diameter, symmetrical expansion, no chest wall deformity HEART (CV/PV): No peripheral edema, no JVD. ABDOMEN: Soft, non-distended, no guarding. MSK: Normal ROM, no swelling/deformity to bilateral UEs or LEs, moving all extremities without weakness, no cyanosis, spine midline without tenderness, normal curvature. R KNEE: 4 x 4 centimeter ecchymosis with central clearing just above and medial to the right patella, patella mobile without crepitus, mild joint line tenderness, pulmonary negative, no ligamentous laxity with varus/valgus forces, anterior drawer negative, no unilateral leg swelling, Homans negative NEURO: Mental Status AAOx4 - alert to person, place, time, events No facial droop, no forehead involvement. Motor: No focal weakness - strength 5/5 in bilateral UEs and LEs, proximal and distal, symmetric. Sensory: sensation intact to light touch globally. Gait normal: patient ambulated without ataxia into ED room. PSYCH: euthymic, cooperative, pleasant, appropriate speech Course Vital Signs Vital signs: Vital Signs Temperature 37.7 C H 07/08/25 20:11 Pulse 110 H 07/08/25 20:11 Respiratory Rate 20 07/08/25 20:11 Blood Pressure 108/66 07/08/25 20:11 Pulse Oximetry 98 07/08/25 20:11 Temperature 37.7 C H 07/08/25 20:11 Pulse 110 H 07/08/25 20:11 Respiratory Rate 20 07/08/25 20:11 Blood Pressure 108/66 07/08/25 20:11 Blood Pressure Position Sitting 07/08/25 20:11 Pulse Oximetry 98 07/08/25 20:11 Oxygen Delivery Method Room Air 07/08/25 20:11 Oxygen Flow Rate 0 07/08/25 20:11 Medical Decision Making This dictation utilizes [id number] dictation software and may contain unedited grammatical errors. 34 year-old female presents to ED today by POV/ambulating with a chief complaint of fall while running up her stairs 4 days ago, with bruise to R knee area. Quality described as bruise that's changing colors, no radiation to expanding hematoma, inability to bear weight, endorses pain on knee joint line. Severity is described as moderate. Palliating factors include ice & elevation with relief. Provoking factors include nothing specific. Events leading up to the incident/Associated Symptoms: Patient is concerned that she's bleeding internally. Patients' medical history: Clotting disorder, PTSD, bipolar. Family and social history: Noncontributory. Pertinent exam findings / vital signs include 4 x 4 clearing bruise just above and medial to the right patella, full range of motion, neurovascular intact distal, Homans negative, no unilateral leg swelling, mild joint line tenderness without ligamentous laxity with varus/valgus forces, no ligamentous laxity with anterior drawer, Chelsi negative. Differential / pathologies of concern include contusion, fracture, internal knee injury. Diagnostic studies of: - X-ray R knee 4 view-no acute fracture seen. Interventions of: - Counseled on Bakari wrap and applying gentle heat and massage to the area and taking Tylenol but reassured her that she is not bleeding internally or having expanding hematoma for 4 days with her nonswollen bruise. ED Course/Assessment/Plan: 34-year-old female fell coming up the stairs 4 days ago and has a bruise that has central clearing and appears to be getting better, she has mild joint line tenderness, had her knee Bakari wrapped, apply gentle heat to the area, take Tylenol, follow-up with orthopedics for any complication. Findings not consistent with expanding hematoma, unilateral leg swelling. Disposition of contusion of right knee. Patient verbalized understanding of the plan and return to ED criteria and engaged in shared decision making. Medical Records Medical records reviewed: Yes I reviewed the patient's medical records. Imaging Data Radiologic Study: Attestation: I personally reviewed and interpreted this imaging study as follows: Imaging: X-Ray Radiologist's impression: Exam: XR Right Knee Exam date and time: 07/08/2025 8:40 PM Age: 34 years old Clinical indication: Right; R knee pain, bruising TECHNIQUE: Imaging protocol: Radiologic exam of the right knee. Views: 4 or more views. COMPARISON: No relevant prior studies available. FINDINGS: Bones/joints: Normal. Soft tissues: Normal. IMPRESSION: No acute findings. Dictated and Authenticated by: Dc Reynoso MD. [facility] All Active Problems (Updated 07/08/25 @ 21:24 by CHARLES Meyer) Contusion of right knee (Acute) No-show for appointment (Acute) ADHD (Acute) Obesity (Chronic) Bipolar 2 disorder (Acute) PTSD (post-traumatic stress disorder) (Acute) Cervical radiculopathy (Acute) Binge eating disorder (Acute) Bloating (Acute) Change in bowel function (Acute) Outcome of delivery, single liveborn (Acute 06/02/14) Labor, precipitous, delivered (Acute 06/02/14) Irritable bowel syndrome (Chronic) Symptomatic varicose veins of both lower extremities (Chronic) Depression (Chronic) (Acute 06/02/14) Medical History (Updated 07/08/25 @ 21:24 by CHARLES Meyer) Genital herpes simplex (11/07/13) PCOS/ possible Dx Dx by her PCP mid 03/2013 secondary to hirsuitism [ face hair only ] Rx Metformin Asthma Family History Other Adenocarcinoma of lung Heart disease Mental disorder Personal history of malignant neoplasm Social History Smoking/Tobacco Use Status: Former Tobacco Use Smoking risk assessment performed?: Yes Drug use: Never Do you feel safe in your relationship?: Yes
[2025-07-08 21:37] VITALS: BP 124/73; PULSE 91; RESP 17; TEMP 37.3; O2SAT 99
== END 2025-07-08 21:40 | disposition home or self-care (01) ==
PROVIDERS: Emergency Provider Physician Assistant; PCP Nurse Practitioner Family
DX: S80.01XA Contusion of right knee, initial encounter (principal); Z79.01 Long term (current) use of anticoagulants; Z87.891 Personal history of nicotine dependence; W01.198A Fall on same level from slipping, tripping and stumbling with subsequent striking against other object, initial encounter; Y93.02 Activity, running; Y92.9 Unspecified place or not applicable
CPT/HCPCS: 99283; 73564